=== PATIENT | female | born 1975 | race Caucasian/White ===

== ENCOUNTER 2020-12-11 12:39 | Inpatient (IN) | payer MEDICAID, SELFPAY ==
[2020-12-11] VITALS (7 sets, daily range): BP systolic 110–130; BP diastolic 70–85; PULSE 58–95; RESP 16–18; TEMP 36.1–36.8; O2SAT 96–100; BMI 31.8
--- NOTE | ~2020-12-11 | CT_ITS ---
EXAMINATION: CT ABDOMEN AND PELVIS WITH CONTRAST CLINICAL INFORMATION: Upper abdominal pain. Elevated lipase. History cervical cancer, status post hysterectomy. COMPARISON: CT abdomen and pelvis noncontrast 11/30/2016. TECHNIQUE: Multidetector volumetric images were obtained from the superior aspect of the liver through the pubic symphysis following administration 85 mL of Omnipaque 350 intravenous contrast. Sagittal and coronal reformatted images were obtained on the technologist's workstation. Oral contrast: No This CT examination was performed using dose optimization techniques as appropriate, variously including the following: *Automated exposure control *Adjustment of mA and/or kV according to patient size (this includes techniques or standardized protocols for targeted exams where dose is matched to indication/reason for exam; i.e. extremities or head) *Use of iterative reconstruction technique DLP: 683 mGy-cm FINDINGS: LUNG BASES: The visualized lung bases are unremarkable. LIVER, GALLBLADDER, AND BILIARY TREE: The liver is within limits of normal size and smooth in contour. There is mild decreased hepatic parenchymal attenuation consistent with hepatic steatosis. There is no focal hepatic parenchymal lesion or intrahepatic ductal dilatation. The gallbladder is unremarkable with no evidence of radiopaque gallstones, gallbladder wall thickening, or obvious pericholecystic inflammatory changes. PANCREAS: The pancreas is homogeneous in attenuation. There is no pancreatic ductal distention or mass or peripancreatic inflammatory changes. SPLEEN: Unremarkable. ADRENAL GLANDS: Unremarkable. KIDNEYS AND URETERS: The kidneys are normal in size and enhance symmetrically. There is no hydronephrosis, hydroureter, calculi, or perinephric stranding. There is a duplicated right renal collecting system with 2 right ureters seen down to at least the lumbosacral junction. BLADDER: Unremarkable. GASTROINTESTINAL TRACT: There is no bowel obstruction or focal inflammatory changes in the bowel or mesentery. The appendix is normal. There is no pneumatosis or free air. No ascites. ABDOMINAL WALL: No significant hernia is appreciated. LYMPH NODES: No lymphadenopathy. There is a small residual lymphocele or seroma right external iliac region, series , coronal image 34. Prior measurements are 4 x 5 x [address] 2017[address] VASCULAR: Unremarkable. PELVIC VISCERA: Prior hysterectomy. OSSEOUS STRUCTURES: Unremarkable. CT/CT abdomen pelvis w con IMPRESSION: 1. Pancreas unremarkable. No cholelithiasis or ductal dilatation. 2. Duplicated right renal collecting system. No hydronephrosis or perinephric stranding. 3. No bowel obstruction or inflammatory changes. Normal appendix. 4. Small residual seroma or lymphocele right pelvis 1.5 cm, prior measurement 4 x 5 x [address] 2017.
--- NOTE | ~2020-12-11 | US_ITS ---
EXAMINATION: US ABDOMEN LIMITED CLINICAL INFORMATION: Acute pancreatitis. COMPARISON: CT abdomen pelvis on 12/11/2020 TECHNIQUE: Real-time imaging of the gallbladder. FINDINGS: GALLBLADDER: Normal. The gallbladder is physiologically distended without evidence of stones, sludge, polyps, wall thickening or pericholecystic fluid. COMMON BILE DUCT: Normal in caliber measuring 0.2 cm in diameter. US/US abdomen limited IMPRESSION: Normal-appearing gallbladder and common bile duct.
[2020-12-11 13:11] LABS: MANUAL DIFF FLAG NO
[2020-12-11 13:15] LABS: Basophils Percent Auto 0.5 % (0-2); Eosinophils Absolute Auto 0.2 X10*3/uL (0.0-0.4); Eosinophils Percent Auto 2.2 % (0-4); Hematocrit 37.4 % (37-47); Hemoglobin 12.4 g/dl (12.0-16.0); Imm Gran Abs Auto 0.03 X10*3/uL (0.00-0.03); Imm Gran Pct Auto 0.4 % (0.0-0.4); Lymphocytes Absolute Auto 2.3 X10*3/uL (1.2-4.9); Lymphocytes Percent Auto 26.8 % (20-40); Mean Corpuscular HGB Conc 33.2 g/dl (31.0-35.0); Mean Corpuscular Hemoglobin 31.8 pg (27.0-33.0); Mean Corpuscular Volume 95.9 fL (80-98); Monocytes Absolute Auto 0.6 X10*3/uL (0.1-1.2); Monocytes Percent Auto 7.1 % (2-11); Neutrophils Absolute Auto 5.3 X10*3/uL (2.0-8.3); Platelet Count 250 X10*3/uL (160-400); Red Cell Distribution Width 13.8 % (11.0-16.0); White Blood Count 8.5 X10*3/uL (4.8-10.8)
[2020-12-11 13:43] LABS: Alanine Aminotransferase 61 U/L (0-31); Albumin Level 4.5 g/dL (3.5-5.0); Alkaline Phosphatase 112 U/L (39-117); Anion Gap 14 (12-20); Aspartate Amino Transferase 39 U/L (5-31); Bilirubin Total 0.7 mg/dL (0.0-1.0); Blood Urea Nitrogen 11 mg/dL (9-16); Calcium 9.8 mg/dL (8.4-10.2); Carbon Dioxide 24 mmol/L (22-29); Chloride 104 mmol/L (96-108); Creatinine Clr Calc Pharmacy 77.3; Estimated Glomerular Filt Rate > 60; Glucose Random 107 mg/dL (60-115); Lipase 230 U/L (8-78); Potassium 4.1 mmol/L (3.3-5.1); Sodium 138 mmol/L (135-145); Total Protein 7.6 g/dL (6.5-8.0)
[2020-12-11] MEDS: 0.9 % Sodium Chloride 1,000 ML 999 ML IVCONT (14:40)
[2020-12-11] MEDS: ondansetron HCL 4 MG/2 ML VIAL IVPUSH ×2 (14:40→17:49)
[2020-12-11] MEDS: Morphine Sulfate 4 MG/ML CARTRIDGE IVPUSH ×2 (14:40→17:50)
--- NOTE | 2020-12-11 14:42 | ED_ITS ---
HPI - Abdominal Pain General Chief Complaint: Abdominal Pain Stated Complaint: abd & back pain Time Seen by Provider: 12/11/20 14:27 Source: patient Mode of arrival: ambulatory Limitations: no limitations History of Present Illness HPI narrative: 45-year-old female with a past medical history of hyperlipidemia has not been on any medications for years who is presenting to the ED with complaints of right upper quadrant abdominal pain with associated nausea and 1 episode of diarrhea that started on Thursday. Reports that she drink some alcohol on Thursday then her symptoms started Thursday today after. She denies any fevers, chills, vomiting, chest pain, shortness of breath, dyspnea on exertion, orthopnea, palpitations, constipation, black or bloody stools, recent travel or sick contacts, possible bad food exposure or any other symptoms complaints or concerns at this time. MD elicited complaint: abdominal pain Pertinent past history: none Pain Consistency: constant Location: epigastric and RUQ Severity: severe Pain scale (0-10): 10 Quality: aching and sharp Radiation: back Exacerbating factors: nothing Relieving factors: nothing Context: other (Drank some alcohol on Thursday night) Associated symptoms: nausea and diarrhea Related Data Patient : No Allergies Allergy/AdvReac Type Severity Reaction Status Date / Time No Known Allergies Allergy Unverified 12/29/19 15:48 Review of Systems Review of Systems Constitutional : No Weight loss, No Fever, No Chills, No Night Sweats, No Fatigue, NoMalaise ENT/Mouth: No ear pain, No sore throat, No Difficulty swallowing Cardiovascular : No Chest Pain, No SOB, No Dyspnea on Exertion, No Orthopnea, NoEdema, No Palpitations Respiratory : No Cough, No Sputum, No Wheezing, No Dyspnea Gastrointestinal : Positive nausea, positive diarrhea, positive right upper quadrant/epigastric abdominal pain, No Vomiting, No blood streaked emesis, No coffee-ground emesis, No gross hematemesis, No blood streak stool, No gross hematochezia, No Melena Genitourinary : No irregular bleeding, No Dysuria, No Urinary Frequency, No Hematuria,No Urinary Incontinence, No Urgency, No Flank Pain Musculoskeletal : No joint pain, No Myalgias, No Joint Swelling Skin : No Skin Lesions, No rash Neuro : No Weakness, No Numbness, No Paresthesias, No Loss of Consciousness, NoDizziness, No Headache Psych : No Social Issues, Heme/Lymph: No Bruising, No Bleeding,No Lymphadenopathy Endocrine : No Polyuria, No Polydipsia, No Temperature Intolerance Yes all other systems are reviewed and are negative Physical Exam Vital Signs: Vital Signs: Last Vital Signs Temp 97.8 F 12/11/20 17:35 Pulse 62 12/11/20 17:35 Resp 16 12/11/20 17:35 BP 122/76 12/11/20 17:35 Pulse Ox 97 12/11/20 17:35 Body Mass Index 31.8 vital signs have been reviewed as normal and appeared to be correct. Blood pressure normal. Heart rate normal. Respiration rate normal. Temperature normal. Oxygen saturation normal. Appearance: Alert. Oriented X3. No acute distress. Head: Normal external exam. Normocephalic. Eyes: PERRLA. EOMI. Conjunctiva and sclera normal. Eyelids normal. ENT: Pharynx normal. Uvula midline. Moist mucous membranes. Neck: Normal inspection. Neck supple. FROM. No adenopathy. No meningeal signs. CVS: Normal heart rate and rhythm. Heart sound normal. No murmurs noted. Pulses normal throughout. Respiratory: No respiratory distress. Painless inspiration. Breath sounds normal. No wheezes/rales/rhonchi noted. Chest nontender. No accessory muscle usage noted or decreased air movement noted. Abdomen: Soft and moderate tenderness to palpation to right upper quadrant/epigastric area with guarding and a positive [place] sign. Nondis tended. No rigidity. Bowel sounds normal in all 4 quadrants. No distention noted. No organomegaly noted. No visible injury noted. No rebound tenderness. Negative Rovsing sign. Negative obturator's sign. Negative psoas sign. Back: Positive Right CVA tenderness. No Left CVAT. Full range of motion noted. Skin: Skin warm and dry. Normal skin color. Normal skin turgor. No rashes/lesions/lacerations noted. Extremities: Extremities exhibit normal range of motion. Extremities nontender. Neuro: Oriented X 3. No motor deficit. No sensory deficit. Reflexes normal. Normal steady gait. Course Course Course Narrative: 14:30pm - 45-year-old female with a past medical history of hyperlipidemia has not been on any medications for years who is presenting to the ED with complaints of right upper quadrant abdominal pain with associated nausea and 1 episode of diarrhea that started on Thursday. Reports that she drink some alcohol on Thursday then her symptoms started Thursday today after. Plan: Labs were obtained in triage and patient noted to have an AST/ALT of 39/61 and a lipase of 230. Therefore at this time I added an LDH/lipid profile and a serum quant along with a CT scan abdomen pelvis with IV contrast. We will provide symptomatic treatment with a L of IV fluids, 4 mg of Zofran and 4 mg of morphine and re-evaluate. Reevaluation(s) Reevaluation #1: - labs returned AST/ALT at 39/61. Lipase 230. Otherwise all other labs are within normal limits. Serum test negative. Patient positive for nitrates therefore consistent with a UTI. - CT scan of abdomen and pelvis with IV contrast revealed chronic changes no acute processes were noted. - although with the patient's history and symptoms along with her elevated AST/ALT and lipase will admit for pain control for clinical pancreatitis. Patient understands agrees with this plan. Dr. Dawson accepted admission at this time. Time: 17:42 [facility] - Abdominal Pain Medical Records Attestation: I reviewed the patient's medical records. Lab Data Attestation: I reviewed the patient's lab results. Result diagrams: 12/11/20 13:08 12/11/20 13:08 Labs: Lab Results 12/11/20 12/11/20 12/11/20 Range/Units 13:08 13:08 15:30 WBC 8.5 (4.8-10.8) X10*3/uL RBC 3.90 L (4.20-5.50) X10*6/uL Hgb 12.4 (12.0-16.0) g/dl Hct 37.4 (37-47) % MCV 95.9 (80-98) fL MCH 31.8 (27.0-33.0) pg MCHC 33.2 (31.0-35.0) g/dl RDW 13.8 (11.0-16.0) % Plt Count 250 (160-400) X10*3/uL MPV 11.0 (9.4-12.3) fL Immature Gran % (Auto) 0.4 (0.0-0.4) % Neut % (Auto) 63.0 (45-73) % Lymph % (Auto) 26.8 (20-40) % [place] % (Auto) 7.1 (2-11) % Eos % (Auto) 2.2 (0-4) % Baso % (Auto) 0.5 (0-2) % Lymph # (Auto) 2.3 (1.2-4.9) X10*3/uL [place] # (Auto) 0.6 (0.1-1.2) X10*3/uL Eos # (Auto) 0.2 (0.0-0.4) X10*3/uL Baso # (Auto) 0.0 (0.0-0.2) X10*3/uL Abs Immat Gran (auto) 0.03 (0.00-0.03) X10*3/uL Absolute Neuts (auto) 5.3 (2.0-8.3) X10*3/uL Absolute Nucleated RBC 0.000 (0.0-0.012) X10*3/uL Nucleated RBC % (auto) 0.0 (0.0-0.2) /100WBC Sodium 138 (135-145) mmol/L Potassium 4.1 (3.3-5.1) mmol/L Chloride 104 (96-108) mmol/L Carbon Dioxide 24 (22-29) mmol/L Anion Gap 14 (12-20) BUN 11 (9-16) mg/dL Creatinine 0.91 (0.5-1.4) mg/dL Estim Creat Clear Calc 77.3 Estimated GFR > 60 Random Glucose 107 (60-115) mg/dL Calcium 9.8 (8.4-10.2) mg/dL Total Bilirubin 0.7 (0.0-1.0) mg/dL AST 39 H (5-31) U/L ALT 61 H (0-31) U/L Alkaline Phosphatase 112 (39-117) U/L Lactate Dehydrogenase 167 (122-220) U/L Total Protein 7.6 (6.5-8.0) g/dL Albumin 4.5 (3.5-5.0) g/dL Triglycerides 271 mg/dL Cholesterol 231 mg/dL LDL Cholesterol, Calc 129 mg/dl HDL Cholesterol 48 mg/dL Lipase 230 H (8-78) U/L Beta HCG, Quant < 2 mIU/mL Urine Color YELLOW Urine Appearance HAZY Urine pH 6.5 (5.0-8.0) Ur Specific [place] 1.010 (1.005-1.025) Urine Protein NEG (NEG-TRACE) MG/DL Urine Glucose (UA) NEG (NEG) MG/DL Urine Ketones NEG (NEG) MG/DL Urine Blood TRACE (NEG) Urine Nitrite POS H (NEG) Ur Leukocyte Esterase NEG (NEG) Urine RBC 1-4 (0) /HPF Urine WBC 1-4 (0-4) /HPF Ur Squamous Epith Cells 2+ /LPF Urine Bacteria 2+ /LPF Imaging Data CT scan abdomen and pelvis with IV contrast: Attestation: I personally reviewed and interpreted this imaging study as follows: Radiologist's impression: FINDINGS: LUNG BASES: The visualized lung bases are unremarkable.? LIVER, GALLBLADDER, AND BILIARY TREE: The liver is within limits of normal size and smooth in contour. There is mild decreased hepatic parenchymal attenuation consistent with hepatic steatosis. There is no focal hepatic parenchymal lesion or intrahepatic ductal dilatation. The gallbladder is unremarkable with no evidence of radiopaque gallstones, gallbladder wall thickening, or obvious pericholecystic inflammatory changes.? PANCREAS: The pancreas is homogeneous in attenuation. There is no pancreatic ductal distention or mass or peripancreatic inflammatory changes.? SPLEEN: Unremarkable.? ADRENAL GLANDS: Unremarkable.? KIDNEYS AND URETERS: The kidneys are normal in size and enhance symmetrically. There is no hydronephrosis, hydroureter, calculi, or perinephric stranding. There is a duplicated right renal collecting system with 2 right ureters seen down to at least the lumbosacral junction.? BLADDER: Unremarkable.? GASTROINTESTINAL TRACT: There is no bowel obstruction or focal inflammatory changes in the bowel or mesentery. The appendix is normal. There is no pneumatosis or free air. No ascites.? ABDOMINAL WALL: No significant hernia is appreciated.? LYMPH NODES: No lymphadenopathy. There is a small residual lymphocele or seroma right external iliac region, series , coronal image 34. Prior measurements are 4 x 5 x [address] 2017[address] VASCULAR: Unremarkable. PELVIC VISCERA: Prior hysterectomy.? OSSEOUS STRUCTURES: Unremarkable.? CT/CT abdomen pelvis w con IMPRESSION: ? 1. Pancreas unremarkable. No cholelithiasis or ductal dilatation. 2. Duplicated right renal collecting system. No hydronephrosis or perinephric stranding. 3. No bowel obstruction or inflammatory changes. Normal appendix. 4. Small residual seroma or lymphocele right pelvis 1.5 cm, prior measurement 4 x 5 x [address] 2017.? Critical Care Time Critical Care Time Critical Care Time: Yes Total Critical Care Time: 60 Attestation: I personally attest to this time spent taking care of the patient Discharge Plan Discharge Clinical Impression: Pancreatitis, Nausea, UTI (urinary tract infection) Patient Disposition: Admitted As Inpatient [facility] Past Medical History Attestation statement: The following information was validated with the patient. Medical History Hx of cervical cancer Social History Social History Alcohol intake: never Patient Tobacco Use Status: Never used Tobacco Use of substances other than those prescribed or required for medical reasons: No Advance Directives: No Advance Directives Information Provided: No Patient : No
[2020-12-11 14:53] LABS: HCG Quantitative < 2 mIU/mL
[2020-12-11 15:00] LABS: Cholesterol 231 mg/dL; HDL Cholesterol 48 mg/dL; LDL Cholesterol Calculated 129 mg/dl; Lactate Dehydrogenase 167 U/L (122-220); Triglycerides 271 mg/dL
[2020-12-11 15:36] LABS: Glucose Urine UA NEG (NEG); Leukocyte Esterase Urine NEG (NEG); Nitrite Urine POS (NEG); PH 6.5 (5.0-8.0); UACC Culture Trigger YES; Urine Blood TRACE (NEG); Urine Ketones NEG (NEG); Urine Protein NEG (NEG-TRACE)
[2020-12-11 15:44] LABS: Appearance Urine HAZY; Color Urine YELLOW
[2020-12-11 15:48] LABS: Bacteria Urine 2+ /LPF; Squamous Epithelial Cell Urine 2+ /LPF
[2020-12-11] MEDS: iohexoL 350 MG/ML 100 ML INFUS..BTL IV (16:30)
--- NOTE | 2020-12-11 18:43 | P.HPHOSP_ITS ---
History of Present Illness Date of Service: 12/11/20 Chief Complaint: Abdominal pain 45 year female with history of cervical cancer. She presents to the emergency room today with abdominal pain in the epigastrium right upper quadrant area that has been ongoing since last weekend worst yesterday and today. She describes excruciating pain have about 8 to 10/10 there is no associated nausea vomiting or diarrhea. No fever or chill. She states usually does not drink alcohol in excess, however drink some alcohol prior to the pain starting. Workup in the ED with a lipase level is [address] scan of the abdomen and pelvis is otherwise unremarkable she is unable to keep p.o. and therefore he has been admitted for further management. Of note she also has evidence of urinary tract infection. Review of Systems Review of Systems: Gen: no fever Resp: no sob, no cough CV: no chest, no LOPEZ, no leg edema GI: No n/v, +abd pain Neuro: No confusion Yes all other systems are reviewed and are negative [facility] Medical History Hx of cervical cancer Pertinent family history: Diabetes, cancers, Social History (Updated 12/11/20 @ 18:51 by Jerry Dawson MD) Alcohol intake: never Patient Tobacco Use Status: Current someday Tobacco user Use of substances other than those prescribed or required for medical reasons: No Advance Directives: No Advance Directives Information Provided: No Patient : No Meds Allergies Allergy/AdvReac Type Severity Reaction Status Date / Time No Known Allergies Allergy Unverified 12/29/19 15:48 Active Medications: Current Medications Generic Name Dose Route Start Last Admin Trade Name Ibeth PRN Reason Stop Dose Admin Pharmacy Consult 1 each 12/11/20 17:26 Consult Rx Perform Med Rec MISCELLANE ONCE PRN Consult order Home Medications Medication Instructions Recorded Confirmed Last Taken Type No Known Home Meds 12/11/20 12/11/20 Unknown History Physical Exam Vital Signs and Narrative: Vital Signs: Last Vital Signs Temp 97.8 F 12/11/20 17:35 Pulse 62 12/11/20 17:35 Resp 16 12/11/20 17:50 BP 122/76 12/11/20 17:35 Pulse Ox 97 12/11/20 17:35 Body Mass Index 31.8 Constitutional Awake and Alert, No apparent distress HEENT anicteric Neck Supple, No lymphadenopathy Cardiovascular RRR, No M/R/G, S1 S2, No S3 S4, No pedal edema Respiratory Lungs clear, No respiratory distress Gastrointestinal epig tender, Non-distended Skin No rash Neurological Alert & oriented x3 No lymphadenopathy Psychological Appropriate affect Results Labs CBC and Chem 7: 12/11/20 13:08 12/11/20 13:08 Labs: Laboratory Results - last 24 hr 12/11/20 12/11/20 12/11/20 13:08 13:08 15:30 MCV 95.9 MCH 31.8 MCHC 33.2 RDW 13.8 Plt Count 250 MPV 11.0 Immature Gran % (Auto) 0.4 Neut % (Auto) 63.0 Lymph % (Auto) 26.8 [place] % (Auto) 7.1 Eos % (Auto) 2.2 Baso % (Auto) 0.5 Lymph # (Auto) 2.3 [place] # (Auto) 0.6 Eos # (Auto) 0.2 Baso # (Auto) 0.0 Abs Immat Gran (auto) 0.03 Absolute Neuts (auto) 5.3 Absolute Nucleated RBC 0.000 Nucleated RBC % (auto) 0.0 Anion Gap 14 Estim Creat Clear Calc 77.3 Estimated GFR > 60 Random Glucose 107 Calcium 9.8 Total Bilirubin 0.7 AST 39 H ALT 61 H Alkaline Phosphatase 112 Lactate Dehydrogenase 167 Total Protein 7.6 Albumin 4.5 Triglycerides 271 Cholesterol 231 LDL Cholesterol, Calc 129 HDL Cholesterol 48 Lipase 230 H Beta HCG, Quant < 2 Urine Color YELLOW Urine Appearance HAZY Urine pH 6.5 Ur Specific [place] 1.010 Urine Protein NEG Urine Glucose (UA) NEG Urine Ketones NEG Urine Blood TRACE Urine Nitrite POS H Ur Leukocyte Esterase NEG Urine RBC 1-4 Urine WBC 1-4 Ur Squamous Epith Cells 2+ Urine Bacteria 2+ Imaging Radiologist's Impressions: Impressions Abdomen/Pelvis CT 12/11/20 14:28 IMPRESSION: 1. Pancreas unremarkable. No cholelithiasis or ductal dilatation. 2. Duplicated right renal collecting system. No hydronephrosis or perinephric stranding. 3. No bowel obstruction or inflammatory changes. Normal appendix. 4. Small residual seroma or lymphocele right pelvis 1.5 cm, prior measurement 4 x 5 x [address] 2017. Assessment and Plan (1) Pancreatitis: Status: Acute (2) UTI (urinary tract infection): Status: Acute 45/F with likely acute alcoholic pancreatitis plan: Pancreatitis, Admit for pain management, keep NPO, IVF, Morphine for pain, get US of abdomen, get triglyceride level. Monitor LFTs UTI--Ceftriaxone, follow culture, DVT prophylaxis, low risk, encourage ambulation Quality Stroke Does the patient have a stroke diagnosis?: No VTE Prior VTE?: No VTE Risk Level:: Medical - low VTE Device Contraindication: Treatment Not Indicated VTE Drug Contraindication: Treatment Not Indicated
[2020-12-11] MEDS: cefTRIAXone sodium 2 GM in 0.9 % Sodium Chloride 50 ML IV (18:44)
[2020-12-11 18:45] LABS: COVID-19 Test Negative (Negative)
--- NOTE | 2020-12-11 19:30 | PC.NURSE ---
pt is having a bedside ultra sound at this time.
--- NOTE | 2020-12-11 19:53 | PC.NURSE ---
RN WILL CALL BACK FOR REPORT.
[2020-12-11 20:11] LABS: UPreg QC Valid YES; Urine Pregnancy NEGATIVE (NEGATIVE)
[2020-12-11] MEDS: Dextrose 5 % and 0.45 % NaCl 1,000 ML 100 ML IVCONT (20:49)
[2020-12-11] MEDS: 0.9 % Sodium Chloride Flush 3 ML SYRINGE IVFLUSH (20:49)
[2020-12-11] MEDS: Melatonin 3 MG TABLET 6 MG PO (23:25)
[2020-12-12] VITALS (10 sets, daily range): BP systolic 90–112; BP diastolic 51–67; PULSE 59–82; RESP 16–18; TEMP 36.3–37; O2SAT 95–99
[2020-12-12] MEDS: HYDROmorphone HCl 0.5 MG/0.5 ML SYRINGE IVPUSH ×4 (00:22→20:41)
[2020-12-12 09:11] LABS: Lipase 117 U/L (8-78)
[2020-12-12] MEDS: Dextrose 5 % and 0.45 % NaCl 1,000 ML 100 ML IVCONT ×2 (09:20→23:45)
[2020-12-12] MEDS: ondansetron HCL 4 MG/2 ML VIAL IVPUSH (09:21)
--- NOTE | 2020-12-12 13:29 | HO.PM.IMPN ---
Subjective Subjective Date of Service: 12/13/20 Interval History: f/u acute pancreatitis, still has pain but is better Review of Systems ab pain is better, no fever Physical Exam Vital Signs: Vital Signs: Last Vital Signs Temp 97.6 F 12/12/20 11:06 Pulse 59 12/12/20 11:06 Resp 16 12/12/20 11:06 BP 95/51 L 12/12/20 11:06 Pulse Ox 99 12/12/20 11:06 Body Mass Index 31.8 General: AO X 3, no acute distress Resp: CTA bilateral CVS: S1,S2,RRR GI: +BS, epig tender, no distention Skin: No rash Neuro: motor grossly intact Psych: appropriate affect Objective Data Current Medications Generic Name Dose Route Start Last Admin Trade Name Freq PRN Reason Stop Dose Admin Acetaminophen 650 mg 12/11/20 18:55 Acetaminophen 325 Mg Tablet PO Q6H PRN Pain, Mild (Pain Scale 1-3) Hydromorphone HCl 0.5 mg 12/11/20 23:36 12/12/20 09:23 Hydromorphone Hcl 0.5 Mg/0.5 Ml Syringe IVPUSH 0.5 mg Q4H PRN Administration Breakthrough Pain Protocol Dextrose/Sodium Chloride 1,000 mls @ 100 mls/hr 12/11/20 19:00 12/12/20 09:20 D51/2ns IVCONT 100 mls/hr .Q10H IBAN Administration Melatonin 6 mg 12/11/20 18:55 12/11/20 23:25 Melatonin 3 Mg Tablet PO 6 mg BEDTIME PRN Administration Insomnia Ondansetron HCl 4 mg 12/11/20 18:55 12/12/20 09:21 Ondansetron Hcl 4 Mg/2 Ml Vial IVPUSH 4 mg Q8H PRN Administration Nausea and Vomiting Pharmacy Consult 1 each 12/11/20 17:26 Consult Rx Perform Med Rec MISCELLANE ONCE PRN Consult order Sodium Chloride 3 ml 12/12/20 00:00 12/12/20 09:11 0.9 % Sodium Chloride Flush 3 Ml Syringe IVFLUSH Not Given QSHIFT [facility] Labs CBC & Chem 7: 12/11/20 13:08 12/11/20 13:08 Labs: Laboratory Results - last 24 hr 12/11/20 12/11/20 12/11/20 13:08 15:30 18:23 Anion Gap 14 Estim Creat Clear Calc 77.3 Estimated GFR > 60 Random Glucose 107 Calcium 9.8 Total Bilirubin 0.7 AST 39 H ALT 61 H Alkaline Phosphatase 112 Lactate Dehydrogenase 167 Total Protein 7.6 Albumin 4.5 Triglycerides 271 Cholesterol 231 LDL Cholesterol, Calc 129 HDL Cholesterol 48 Lipase 230 H Beta HCG, Quant < 2 Urine Color YELLOW Urine Appearance HAZY Urine pH 6.5 Ur Specific [place] 1.010 Urine Protein NEG Urine Glucose (UA) NEG Urine Ketones NEG Urine Blood TRACE Urine Nitrite POS H Ur Leukocyte Esterase NEG Urine RBC 1-4 Urine WBC 1-4 Ur Squamous Epith Cells 2+ Urine Bacteria 2+ Urine Test COVID-19 ([facility]) Negative COVID-19 Clin Com See Note 12/11/20 12/12/20 20:09 08:31 Anion Gap Estim Creat Clear Calc Estimated GFR Random Glucose Calcium Total Bilirubin AST ALT Alkaline Phosphatase Lactate Dehydrogenase Total Protein Albumin Triglycerides Cholesterol LDL Cholesterol, Calc HDL Cholesterol Lipase 117 H Beta HCG, Quant Urine Color Urine Appearance Urine pH Ur Specific [place] Urine Protein Urine Glucose (UA) Urine Ketones Urine Blood Urine Nitrite Ur Leukocyte Esterase Urine RBC Urine WBC Ur Squamous Epith Cells Urine Bacteria Urine Test NEGATIVE COVID-19 ([facility]) COVID-19 Clin Com Microbiology Microbiology Results: Microbiology 12/11/20 15:30 Urine Culture - Preliminary Urine clean catch - Urine tay top Gram negative maria l Assessment and Plan (1) Pancreatitis: Status: Acute (2) Nausea: Status: Acute (3) UTI (urinary tract infection): Status: Acute (4) Renal failure: Status: Acute Assessment and Plan: 45/F with likely acute alcoholic pancreatitis plan: Acute alcoholic pancreaitis, lipase going down, still with pain but better, advance to full liquid diet. UTI--Ceftriaxone, Ceftin DVT prophylaxis, low risk, encourage ambulation Quality Stroke Does the patient have a stroke diagnosis?: No VTE Prior VTE?: No VTE Risk Level:: Medical - low VTE Device Contraindication: Treatment Not Indicated VTE Drug Contraindication: Treatment Not Indicated
--- NOTE | 2020-12-12 13:48 | MHC.CM.PN ---
EMR REVIEWED, PT ADMITTED W/ACUTE ETOH PANCREATITIS, CM MET W/PT WHO REPORTS SHE LIVES W/FAMILY INCLUDING MOTHER, PT IS INDEPENDENT W/ALL CARE, NO DME AND NO HOME SERVICES, CM DID SPEAK W/PT ABOUT ETOH ABUSE AND PT IS CURRENTLY DECLINING SA TX OR TO SPEAK W/RECOVERY PAID SEARCH SPECIALIST/NURSE. D/C PLAN: HOME SELF-CARE, MOTHER TO TRANSPORT' PCP: DICKSON TENA HCP: LEAH HOOK (PARENT) [phone]
[2020-12-12] MEDS: 0.9 % Sodium Chloride Flush 3 ML SYRINGE IVFLUSH (16:42)
[2020-12-13 00:45] VITALS: BP 108/62; PULSE 64; RESP 17
[2020-12-13 00:48] VITALS: RESP 17
[2020-12-13] MEDS: HYDROmorphone HCl 0.5 MG/0.5 ML SYRINGE IVPUSH ×2 (00:48→05:02)
[2020-12-13 03:26] VITALS: BP 110/64; PULSE 64; RESP 16; TEMP 36.1; O2SAT 96
[2020-12-13 05:01] VITALS: BP 111/60; PULSE 74; RESP 18
[2020-12-13 05:02] VITALS: RESP 18
--- NOTE | 2020-12-13 06:34 | PC.NURSE ---
1999; bp 90/60, hr 71, pt asymptomatic, denies dizziness/lightheaded. Rechecked bp at 2020, bp 109/60, hr 67. Patient in on iv fluids d5 1/2ns @ 100 cc/hr. Dr. Paiz made aware. no new orders at this time.
[2020-12-13 07:44] VITALS: BP 147/74; PULSE 83; RESP 15; TEMP 36.2; O2SAT 97
[2020-12-13] MEDS: HYDROmorphone HCl 2 MG/ML VIAL 0.5 MG IVPUSH (09:08)
--- NOTE | 2020-12-13 09:42 | PM.DS ---
DS: Providers Provider Date of Service: 12/13/20 Date of admission: 12/11/20 18:56 Primary care physician: Nicola Robb MD DS: Diagnosis Discharge Diagnosis (1) Pancreatitis: Status: Resolved (2) Nausea: Status: Resolved (3) UTI (urinary tract infection): Status: Acute (4) Renal failure: Status: Resolved DS: Summary Hospital Course Hospital Course: Date of Service: 12/11/20 Chief Complaint: Abdominal pain 45 year female with history of cervical cancer.? She presents to the emergency room today with abdominal pain in the epigastrium right upper quadrant area that has been ongoing since last weekend worst yesterday and today.? She describes excruciating pain have about 8 to 10/10 there is no associated nausea vomiting or diarrhea.? No fever or chill.? She states usually does not drink alcohol in excess, however drink some alcohol prior to the pain starting.? Workup in the ED with a lipase level is [address] scan of the abdomen and pelvis is otherwise unremarkable she is unable to keep p.o. and therefore he has been admitted for further management.? Of note she also has evidence of urinary tract infection. Hospital course: Patient was admitted for management for acute alcoholic pancreatitis and pain treated with IV morphine, she was hydrated. CT and US showed no stone, repeat lipase next day was trending down, so was started on liquid and by second day improved further and was given regular diet which is tolerating. She is advised to staty away from alcohol and avoid further episodes of pancreatitis and other ailments associated with alcohol use Time Spent with Patient Time attestation: Total time spent providing and/or coordinating discharge services: Discharge coordination time: Greater than 30 minutes Quality: Stroke Does the patient have a stroke diagnosis?: No Physical Exam Vital Signs: Vital Signs: Last Vital Signs Temp 97.2 F 12/13/20 07:44 Pulse 83 12/13/20 07:44 Resp 15 12/13/20 07:44 BP 147/74 H 12/13/20 07:44 Pulse Ox 97 12/13/20 07:44 Body Mass Index 31.8 DS: Data Data Completed and Pending Labs on day of discharge: Preliminary micro results at discharge 12/11/20 18:34 Blood Culture - Preliminary Blood - Venous No growth after 24 hours. 12/11/20 18:34 Blood Culture - Preliminary Blood - Venous No growth after 24 hours. Discharge Plan Discharge Anticipated Discharge Date/Time: 12/13/20 09:28 Patient Disposition: Home, Self-Care Discharge Diagnosis: Acute pancreatitis Referrals: Nicola Robb MD [Primary Care Provider] - 1 Week Discharge Medications: No Action No Known Home Meds RF: 0 Discharge Orders: Discharge Order (Routine); Ordered 12/13/20 Ordered By: Jerry Dawson Diet: advance to usual diet Activity on Discharge: As tolerated Stand Alone Forms: Patient Portal Discharge page Care Plan Goals: prevent rehospitalization from pancreatitis Health Concerns: alcoholic pancreatitis Plan of Treatment: to avoid alcohol, follow up with PCP in a week Assessment: as above Discharge Date/Time: 12/13/20 13:58
--- NOTE | 2020-12-13 11:34 | MHC.CM.PN ---
PT DISCHARGING HOME SELF-CARE W/DIRECTIONS TO FOLLOW-UP W/PCP [facility] IN ONE WEEK, PT'S MOTHER FOR TRANSPORT
== END 2020-12-13 13:58 | disposition home or self-care (01) | DRG 282 ==
LOC: HO.ED 17:46 → HO.S3 19:19
PROVIDERS: Physician Assistant Medical; Admitting Provider Internal Medicine; Emergency Provider Emergency Medicine; PCP Internal Medicine; Visit Provider Internal Medicine
DX: K85.20 Alcohol induced acute pancreatitis without necrosis or infection (principal); N17.9 Acute kidney failure, unspecified; E78.5 Hyperlipidemia, unspecified; F17.210 Nicotine dependence, cigarettes, uncomplicated; Z20.822 Contact with and (suspected) exposure to COVID-19; N39.0 Urinary tract infection, site not specified; Z85.41 Personal history of malignant neoplasm of cervix uteri; Z71.6 Tobacco abuse counseling
CPT/HCPCS: 36415; 74177; 76705; 80053; 80061; 81001; 81025; 83615; 83690; 84702; 85025; 87040; 87086; 87088; 87186; 87635; 96361; 96365; 96375; 96376; 99218; 99285; 99291; J0696; J1170; J2270; J2405; Q9967

== ENCOUNTER 2023-06-21 13:46 | Emergency (ER) | payer OTHER, SELFPAY ==
[2023-06-21 15:08] VITALS: BP 126/85; PULSE 84; RESP 19; TEMP 36.6; O2SAT 98; BMI 32.8
--- NOTE | 2023-06-21 15:08 | ED.HA ---
HPI - Headache General Chief Complaint: General Medical Stated Complaint: Left side head pain Time Seen by Provider: 06/21/23 19:49 Source: patient Mode of arrival: ambulatory Limitations: no limitations History of Present Illness HPI Narrative: Patient is a 48-year-old female presenting to the emergency department with complaint of left-sided neck pain radiating down left arm and left lateral chest for the past 2 days. Denies fall or other trauma, denies recent heavy lifting. Denies headache. Also feels as though she has swelling around left eye. Denies pain, itching, drainage, changes in vision. Denies any recent URI symptoms, nasal congestion, sinus tenderness. Denies any dental pain. Denies fevers. Denies weakness, numbness, tingling to arm. MD elicited complaint: other Onset (ago): day(s) Location: left and neck Severity: severe Quality & Timing: aching Exacerbating factors: movement of head/neck and other (palpation) Context: occurred at rest Treatments prior to arrival: ibuprofen Related Data Previous Rx's Medication Instructions Recorded cyclobenzaprine 5 mg tablet 5 mg PO TID PRN muscle spasm #10 06/21/23 tabs lidocaine 5 % topical patch 1 patch topical DAILY #15 ea 06/21/23 prednisone 20 mg tablet 40 mg (2 x 20 mg) PO DAILY #10 tabs 06/21/23 Allergies Allergy/AdvReac Type Severity Reaction Status Date / Time No Known Allergies Allergy Verified 06/21/23 15:08 Review of Systems Review of Systems: As per hPI. Yes all other systems are reviewed and are negative Constitutional: Constitutional: Reports as per HPI [facility] Past Medical History Medical History Hx of cervical cancer Social History Social History (Updated 12/11/20 @ 18:51 by Jerry Dawson MD) Household Members: Family Housing: House Do you presently have visiting nurse or other home services: No Alcohol intake: never Patient Tobacco Use Status: Current someday Tobacco user Tobacco use type: Cigarette Cigarettes Per Day: 3 Smoked in Last 30 Days: Yes Use of substances other than those prescribed or required for medical reasons: No Advance Directives: No Advance Directives Information Provided: No service: No Current occupational status: employed Physical Exam Vital Signs: Vital Signs: Last Vital Signs Temp 98.0 F 06/21/23 21:57 Pulse 70 06/21/23 21:57 Resp 16 06/21/23 21:57 BP 126/81 06/21/23 21:57 Pulse Ox 96 06/21/23 21:57 O2 Del Method Room Air 06/21/23 21:57 BMI result Body Mass Index 32.8 Vital signs have been reviewed and appear to be correct. Blood pressure normal. Heart rate normal. Respiratory rate normal. Temperature normal. Oxygen saturation normal. Const: General: cooperative, healthy appearing and no acute distress Orientation/consciousness: oriented to person, oriented to place, oriented to time and patient oriented x3 Limitations: no limitations HEENT: Head: Yes normocephalic and Yes atraumatic Ears: external ears normal, TM's normal bilaterally and EAC's normal General nose exam: Normal external nose present and Normal nasal mucous membranes and turbinates present Face and sinus: Yes normal facial exam, Yes sinuses nontender and Yes face symmetric Mouth: oropharynx normal and moist mucous membranes Throat: Yes uvula midline Eyes: Other: No erythema or swelling to left eye or periorbital area. General: appearance normal, both eyes and all related structures Visual Mejias: normal visual mejias by confrontation Alignment and Position: alignment normal and position normal Periorbital: periorbital findings normal Eyelids: Yes eyelids normal Conjunctivae: conjunctivae normal Sclerae: sclerae normal Pupils: Equal, round and reactive pupils present EOM: EOMs intact bilaterally Neck: Neck: Yes normal visual inspection, Yes full ROM, Yes no lymphadenopathy, Yes no meningeal signs, Yes trachea midline, Yes supple, No anterior neck swelling and Yes tender (left lateral) Lymphatic: no lymphadenopathy noted Chest: Chest palpation & inspection: tenderness pectoral muscle on the left diffusely Resp: Effort & Inspection: normal respiratory effort and able to speak in complete sentences Auscultation: clear to auscultation bilaterally Cardio: Rate: regular rate Rhythm: regular rhythm Heart sounds: S1 normal heart sound present and S2 normal heart sound present GI: Palpation (GI): Soft to palpation and nontender Auscultation: normoactive bowel sounds : General: Yes no CVA tenderness Back/Spine/Pelvis: Back: no CVA tenderness Skin: General skin exam: elasticity normal and turgor normal Neuro: General: oriented to person, oriented to place, oriented to time, patient oriented x3, moves all extremities, no meningeal signs, no focal motor deficits and CN's II-XI intact bilaterally Cranial nerves: Yes Equal, round and reactive pupils present Cognition (Neuro): normal cognition Extrem: General: Yes full ROM, Yes no pedal edema and Yes no calf tenderness Left upper extremity: shoulder/upper arm Details: inspection abnormal, tenderness Location: of the A-C joint, axillary nerve sensory function normal and normal ROM and hand Details: vascular exam Details: radial pulse present Psych: Mental Status: mental status grossly normal Affect: normal affect Thought process: Normal thought process present Course Course Course Narrative: This is a rapid medical exam. Deferred additional HPI, ROS, PE to primary provider. 48yo female with history of HLD here with complaints of left sided headache with radiates down the left side of her body x 2 days, also concerned her face is swollen. Will obtain labs, viral testing VSS Medications Administered Discontinued Medications Generic Name Dose Route Start Last Admin Trade Name Freq PRN Reason Stop Dose Admin Cyclobenzaprine HCl 10 mg 06/21/23 19:59 06/21/23 20:26 Cyclobenzaprine Hcl 10 Mg Tablet PO 06/21/23 20:00 10 mg ONCE ONE Administration Ketorolac Tromethamine 30 mg 06/21/23 19:59 06/21/23 20:26 Ketorolac Tromethamine 30 Mg/Ml Vial IM 06/21/23 20:00 30 mg ONCE ONE Administration Medical Decision Making Medical Decision Making [facility] Narrative: Patient is a 48-year-old female presenting to the emergency department with complaint of left-sided neck pain radiating down left arm and left lateral chest for the past 2 days. On exam patient is awake, A+Ox3, VS WNL, afebrile, normal neurological exam without focal deficits, physical exam findings as above. Given reported symptoms and physical exam findings, initial differential includes muscle strain, viral illness, cervical radiculopathy. Labs unremarkable. Urinalysis notable for trace blood, no evidence of infection. Viral swabs negative. Patient medicated in the ED with flexeril and ketorolac with good relief of symptoms. No swelling or erythema noted to left eye/periorbital area. Will discharge patient home with prescriptions for prednisone, Flexeril, lidocaine patches, advised to alternate Tylenol and ibuprofen. Instructed patient to follow-up with her primary care provider. Return precautions discussed at bedside. Patient is agreeable to plan and verbalized understanding. Differential Diagnosis Differential Diagnoses: The differential diagnosis associated with the presentation includes As per [facility]. Lab Data [facility] Lab Attestation statement: I reviewed the patient's lab results. As per MDM. 06/21/23 16:17 06/21/23 16:17 Labs: Lab Results 06/21/23 06/21/23 Range/Units 16:17 20:32 WBC 9.1 (4.8-10.8) X10*3/uL RBC 4.04 L (4.20-5.50) X10*6/uL Hgb 12.8 (12.0-16.0) g/dl Hct 38.7 (37.0-47.0) % MCV 95.8 (80.0-98.0) fL MCH 31.7 (27.0-33.0) pg MCHC 33.1 (31.0-35.0) g/dl RDW 14.8 (11.0-16.0) % Plt Count 265 (160-400) X10*3/uL MPV 11.6 (9.4-12.3) fL Immature Gran % (Auto) 0.4 (0.0-0.4) % Neut % (Auto) 54.6 (45-73) % Lymph % (Auto) 36.2 (20-40) % [place] % (Auto) 6.2 (2-11) % Eos % (Auto) 1.8 (0-4) % Baso % (Auto) 0.8 (0-2) % Lymph # (Auto) 3.3 (1.2-4.9) X10*3/uL [place] # (Auto) 0.6 (0.1-1.2) X10*3/uL Eos # (Auto) 0.2 (0.0-0.4) X10*3/uL Baso # (Auto) 0.1 (0.0-0.2) X10*3/uL Abs Immat Gran (auto) 0.04 H (0.00-0.03) X10*3/uL Absolute Neuts (auto) 5.0 (2.0-8.3) x10*3/uL Absolute Nucleated RBC 0.000 (0.0-0.012) X10*3/uL Nucleated RBC % (auto) 0.0 (0.0-0.2) /100WBC Sodium 140 (135-145) mmol/L Potassium 3.8 (3.3-5.1) mmol/L Chloride 104 (96-108) mmol/L Carbon Dioxide 25 (22-29) mmol/L Anion Gap 15 (12-20) BUN 12 (9-16) mg/dL Creatinine 1.05 (0.5-1.4) mg/dL Estim Creat Clear Calc 65.7 Estimated GFR 55 Random Glucose 120 H (60-115) mg/dL Calcium 10.2 (8.4-10.2) mg/dL Total Bilirubin 0.3 (0.0-1.0) mg/dL Direct Bilirubin 0.1 (0.0-0.5) mg/dL AST 27 (5-31) U/L ALT 24 (0-31) U/L Alkaline Phosphatase 85 (39-117) U/L Total Protein 8.6 H (6.5-8.0) g/dL Albumin 4.9 (3.5-5.0) g/dL Urine Color Yellow Urine Appearance Clear Urine pH 5.5 (5.0-9.0) Ur Specific [place] 1.010 (1.005-1.025) Urine Protein Negative (Neg-Trace) mg/dL Urine Glucose (UA) Negative (Negative) mg/dL Urine Ketones Negative (Negative) mg/dL Urine Blood Trace H (Negative) Urine Nitrite Negative (Negative) Ur Leukocyte Esterase Negative (Negative) Urine RBC 0-2 (0-2) /HPF Urine WBC 0-5 (0-5) /HPF Ur Squamous Epith Cells 0-2 (0-2) /HPF Urine Bacteria Trace (None Seen) Hyaline Casts 0-2 (0-2) /LPF Influenza Type A (PCR) NEGATIVE (Negative) Influenza Type B (PCR) NEGATIVE (Negative) RSV RNA Qual (PCR) NEGATIVE (Negative) SARS-CoV-2 RNA (RT-PCR) NEGATIVE (Negative) External Record Review External record reviewed: Inpatient record, Office record and Outpatient record Prescription Management I considered prescription management with: Pain Medication and Other Discharge Plan Discharge Clinical Impression: Cervical radiculopathy Patient Disposition: Home, Self-Care Instructions: Cervical Radiculopathy (ED) Additional Instructions: You were evaluated in the emergency department today for left-sided neck pain. You are being treated with a steroid to decrease inflammation, a muscle relaxer, and topical lidocaine patches which you can wear for up to 12 hours in a 24 hour period (do not apply heat directly over the patches). We recommend taking 600mg ibuprofen or 650mg Tylenol every 6 hours as needed for pain. If necessary, you can alternate these medications every 3 hours. For example, at 9:00 a.m. take Tylenol, then at noon take ibuprofen, then at 3:00 p.m. take Tylenol, etc.. Please follow-up with your primary care provider. Return to the emergency department if you develop increasing pain, new weakness, numbness, tingling, swelling, redness or warmth or any other concerning symptoms. Prescriptions: New prednisone 20 mg tablet 40 mg PO DAILY Qty: 10 0RF lidocaine 5 % adhesive patch,medicated 1 patch topical DAILY Qty: 15 0RF Rx Instructions: leave on most painful area for up to 12 hrs cyclobenzaprine 5 mg tablet 5 mg PO TID PRN (Reason: muscle spasm) Qty: 10 0RF
[2023-06-21 16:41] LABS: MANUAL DIFF FLAG NO
[2023-06-21 16:44] LABS: Basophils Absolute Auto 0.1 X10*3/uL (0.0-0.2); Basophils Percent Auto 0.8 % (0-2); Eosinophils Absolute Auto 0.2 X10*3/uL (0.0-0.4); Eosinophils Percent Auto 1.8 % (0-4); Hematocrit 38.7 % (37.0-47.0); Hemoglobin 12.8 g/dl (12.0-16.0); Imm Gran Abs Auto 0.04 X10*3/uL (0.00-0.03); Imm Gran Pct Auto 0.4 % (0.0-0.4); Lymphocytes Absolute Auto 3.3 X10*3/uL (1.2-4.9); Lymphocytes Percent Auto 36.2 % (20-40); Mean Corpuscular HGB Conc 33.1 g/dl (31.0-35.0); Mean Corpuscular Hemoglobin 31.7 pg (27.0-33.0); Mean Corpuscular Volume 95.8 fL (80.0-98.0); Mean Platelet Volume 11.6 fL (9.4-12.3); Monocytes Absolute Auto 0.6 X10*3/uL (0.1-1.2); Monocytes Percent Auto 6.2 % (2-11); Neutrophils Percent Auto 54.6 % (45-73); Platelet Count 265 X10*3/uL (160-400); Red Blood Count 4.04 X10*6/uL (4.20-5.50); Red Cell Distribution Width 14.8 % (11.0-16.0); White Blood Count 9.1 X10*3/uL (4.8-10.8)
[2023-06-21 16:59] LABS: Alanine Aminotransferase 24 U/L (0-31); Albumin Level 4.9 g/dL (3.5-5.0); Alkaline Phosphatase 85 U/L (39-117); Anion Gap 15 (12-20); Aspartate Amino Transferase 27 U/L (5-31); Bilirubin Direct 0.1 mg/dL (0.0-0.5); Bilirubin Total 0.3 mg/dL (0.0-1.0); Blood Urea Nitrogen 12 mg/dL (9-16); Calcium 10.2 mg/dL (8.4-10.2); Carbon Dioxide 25 mmol/L (22-29); Chloride 104 mmol/L (96-108); Creatinine Clr Calc Pharmacy 65.7; Estimated Glomerular Filt Rate 55; Glucose Random 120 mg/dL (60-115); Potassium 3.8 mmol/L (3.3-5.1); Sodium 140 mmol/L (135-145); Total Protein 8.6 g/dL (6.5-8.0)
[2023-06-21 17:24] LABS: Influenza A PCR NEGATIVE (Negative); Influenza B PCR NEGATIVE (Negative); Resp Syncy Virus RNA Qual PCR NEGATIVE (Negative); SARS COV2 PCR INHOUSE NEGATIVE (Negative)
--- NOTE | 2023-06-21 18:44 | PC.NURSE ---
Patient reports left sided facial/arm/finger pain that started 2 days ago and facial swelling that started yesterday. Denies chest pain or headache. vss.
[2023-06-21 18:46] VITALS: BP 135/94; PULSE 76; RESP 18; TEMP 36.6; O2SAT 97
--- NOTE | 2023-06-21 19:18 | PC.NURSE ---
This RN assumed pt care @ 1900. Pt ca&ox4, no signs of acute distress. Pt resting in bed comfortably. Plan of care ongoing.
[2023-06-21 19:40] VITALS: BP 116/76; PULSE 76; RESP 16; TEMP 36.6; O2SAT 96
[2023-06-21] MEDS: Cyclobenzaprine HCl 10 MG TABLET PO (20:26)
[2023-06-21] MEDS: Ketorolac Tromethamine 30 MG/ML VIAL IM (20:26)
[2023-06-21 20:39] LABS: Appearance Urine Clear; Color Urine Yellow; Glucose Urine UA Negative (Negative); Leukocyte Esterase Urine Negative (Negative); Nitrite Urine Negative (Negative); PH 5.5 (5.0-9.0); UMIC TRIGGER UACC YES; Urine Blood Trace (Negative); Urine Ketones Negative (Negative); Urine Protein Negative (Neg-Trace)
--- NOTE | 2023-06-21 20:40 | PC.NURSE ---
Pt medicated per jun. Pt requested and given food and drink. Pts family at bedside. Plan of care ongoing.
[2023-06-21 20:44] LABS: Bacteria Urine Trace (None Seen); Hyaline Casts Urine 0-2 /LPF (0-2); RBC Urine 0-2 /HPF (0-2); Squamous Epithelial Cell Urine 0-2 /HPF (0-2); WBC Urine 0-5 /HPF (0-5)
[2023-06-21 21:57] VITALS: BP 126/81; PULSE 70; RESP 16; TEMP 36.7; O2SAT 96
== END 2023-06-21 22:26 | disposition home or self-care (01) ==
PROVIDERS: Nurse Practitioner Family; Registered Nurse Emergency; Emergency Provider Emergency Medicine
DX: M54.12 Radiculopathy, cervical region (principal); R51.9 Headache, unspecified; M79.602 Pain in left arm; R07.89 Other chest pain; Z11.52 Encounter for screening for COVID-19; Z20.822 Contact with and (suspected) exposure to COVID-19; Z79.899 Other long term (current) drug therapy
CPT/HCPCS: 0241U; 80048; 80076; 81001; 85025; 96372; 99284; J1885